=== PATIENT | male | born 1945 | race Caucasian/White ===

== ENCOUNTER 2020-08-25 21:47 | Inpatient (IN) | payer MEDICARE, MEDICAID ==
[~2020-08-25] VITALS: Ht 180.3 cm; Wt 65.6 kg
[2020-08-25] MEDS ORDERED: SODIUM CHLORIDE FLUSH 10ML SYR IVF ONE (22:00)
--- NOTE | 2020-08-25 22:05 | NUR ---
PT RECIEVED FROM [facility] FOR MORPHINE OVERDOSE AND SUBSEQUENT AFIB WITH RVR. 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 PT WAS ALSO GIVEN LABATELOL, DILT PUSHES AND PT WAS RECIEVED HERE ON A DILT DRIP. PER ER CASEY, HOLD DILT DRIP AND NOTIFIY HIM IF HR EXCEEDS 100 BPM. PT ATTACHED TO ALL MONITORS AND APPEARS NSR. PT [id number].
--- NOTE | 2020-08-25 22:08 | NUR ---
REPORT OF PT FROM DIXIE YOUNGBLOOD AND ASSUMING CARE OF PT AT THIS TIME.
--- NOTE | 2020-08-25 22:13 | NUR ---
CHEST X RAY AND HEAD CT SCAN AT TRANSFERING FACILITY BOTH NEGATIVE FOR ACUTE ABNORMALITIES.
[2020-08-25] MEDS ORDERED: ALBUTEROL (22:27)
[2020-08-25] MEDS ORDERED: BUPR100T11 PO (22:27)
[2020-08-25] MEDS ORDERED: HYDR50TA99 PO (22:27)
[2020-08-25] MEDS ORDERED: LOSA100T14 PO (22:27)
[2020-08-25] MEDS ORDERED: MORPHINE PO (22:27)
[2020-08-25] MEDS ORDERED: TEMA30CA PO (22:27)
[2020-08-25] MEDS ORDERED: AMLO-150 PO (22:27)
[2020-08-25] MEDS ORDERED: GABA600T7 PO (22:27)
[2020-08-25] MEDS ORDERED: HYDR-3246 PO (22:27)
[2020-08-25] MEDS ORDERED: METO-95 PO (22:27)
[2020-08-25 22:43] LABS: BASOPHILS % (AUTO) 0 % (0-1); EOSINOPHILS % (AUTO) 0 % (1-7); LYMPHOCYTES % (AUTO) 7 % (22-44); MEAN CORPUSCULAR HEMOGLOBIN 30.7 pg (27.5-34.5); MEAN CORPUSCULAR HGB CONC 33.3 g/dL (33.2-36.2); MEAN PLATELET VOLUME 8.8 fL (7.4-10.4); MONOCYTES % (AUTO) 7 % (2-9); NEUTROPHILS % (AUTO) 86 % (42-75); PLATELET COUNT 311 x10^3/uL (130-400); RED BLOOD COUNT 4.65 x10^6/uL (4.38-5.82); RED CELL DISTRIBUTION WIDTH 14.7 % (9.4-14.8)
[2020-08-25 22:44] LABS: MD NO
[2020-08-25 22:50] LABS: ALBUMIN 2.9 g/dL (3.4-5.0); CALCIUM 9.1 mg/dL (8.5-10.1); CHLORIDE 106 mmol/L (98-107)
[2020-08-25 23:00] LABS: ANION GAP 10 mmol/L (5-15)
[2020-08-25 23:02] LABS: ALANINE AMINOTRANSFERASE 61 U/L (12-78); ALKALINE PHOSPHATASE 101 U/L (45-117); BILIRUBIN,TOTAL 0.7 mg/dL (0.2-1.0); CREATININE 0.92 mg/dL (0.7-1.3); T4 (THYROXINE) 7.7 mcg/dL (4.5-12.1); TOTAL PROTEIN 7.1 g/dL (6.4-8.2); TROPONIN I 0.021 ng/mL (0.000-0.045)
[2020-08-25 23:07] LABS: INTERNATIONAL NORMALIZED RATIO 1.01 (0.93-1.1); PROTHROMBIN TIME 10.7 Seconds (9.6-11.5)
[2020-08-25] MEDS ORDERED: FUROSEMIDE 40 MG/4 ML ONE (23:08)
--- NOTE | 2020-08-25 23:16 | NUR ---
pt resting in [facility] at this time. dr walker at for pt history and assessment. pt medicated per mar and vss and updated.
[2020-08-25] MEDS ORDERED: ONDANSETRON 2MG/ML, 2ML IVPush PRN (23:30)
[2020-08-25] MEDS ORDERED: METHOCARBAMOL 500 MG TABLET PO PRN (23:30)
[2020-08-25] MEDS ORDERED: GUAIFENESIN/DM 200-20MG, 10ML UDC PO PRN (23:30)
[2020-08-25] MEDS ORDERED: FUROSEMIDE 40 MG/4 ML IV ONE (23:30)
[2020-08-25] MEDS ORDERED: ENALAPRILAT 1.25 MG/ML, 2ML IVPush PRN (23:30)
[2020-08-25] MEDS ORDERED: DOCUSATE 100 MG CAPSULE PO PRN (23:30)
[2020-08-25 23:45] LABS: FREE T4 (FREE THYROXINE) 1.4 ng/dL (0.76-1.46)
--- NOTE | 2020-08-26 00:26 | NUR ---
REPORT OF PT TO DIXIE SYKES. ALL QUESTIONS ANSWERED. PT VERBALIZES UNDERSTANDING OF ROOM ASSIGNMENT. TECH PAGED FOR TRANSPORT OF PT FROM ED TO FLOOR AT THIS TIME.
[2020-08-26 00:53] VITALS: BP 125/77
[2020-08-26 00:54] VITALS: BP 125/77
[2020-08-26] MEDS: ACETAMINOPHEN 325 MG TABLET PO PRN ×3 (04:41→20:05)
[2020-08-26 05:22] LABS: ANION GAP 2 mmol/L (5-15); CHLORIDE 106 mmol/L (98-107)
[2020-08-26 05:27] LABS: CREATININE 0.82 mg/dL (0.7-1.3); TROPONIN I 0.021 ng/mL (0.000-0.045)
[2020-08-26 07:16] VITALS: BP 136/81
[2020-08-26] MEDS ORDERED: FUROSEMIDE 40 MG/4 ML IV SCH (07:30)
[2020-08-26 07:38] LABS: BASOPHILS % (AUTO) 1 % (0-1); EOSINOPHILS % (AUTO) 1 % (1-7); LYMPHOCYTES % (AUTO) 11 % (22-44); MEAN CORPUSCULAR HEMOGLOBIN 31.2 pg (27.5-34.5); MEAN CORPUSCULAR HGB CONC 33.7 g/dL (33.2-36.2); MEAN PLATELET VOLUME 8.5 fL (7.4-10.4); MONOCYTES % (AUTO) 8 % (2-9); NEUTROPHILS % (AUTO) 80 % (42-75); PLATELET COUNT 326 x10^3/uL (130-400); RED BLOOD COUNT 4.47 x10^6/uL (4.38-5.82); RED CELL DISTRIBUTION WIDTH 14.9 % (9.4-14.8)
[2020-08-26 07:40] LABS: MD NO
[2020-08-26] MEDS ORDERED: FAMOTIDINE 40 MG TABLET ONE ×2 (10:10→20:41)
[2020-08-26] MEDS: GABAPENTIN 300 MG CAPSULE PO SCH ×2 (10:12→20:45)
[2020-08-26] MEDS: AMLODIPINE 5 MG TABLET PO SCH (10:12)
[2020-08-26] MEDS: METOPROLOL SUCCINATE 100 MG TAB.ER.24H PO SCH (10:12)
[2020-08-26] MEDS: ENOXAPARIN 40 MG/0.4 ML SQ SCH (10:12)
[2020-08-26] MEDS: LOSARTAN 100 MG TAB PO SCH (10:12)
[2020-08-26] MEDS: BUPROPION 100 MG TABLET PO SCH (10:12)
[2020-08-26] MEDS: FAMOTIDINE 20 MG TABLET PO SCH ×2 (10:13→20:45)
[2020-08-26 10:29] LABS: TROPONIN I < 0.015 ng/mL (0.000-0.045)
[2020-08-26 15:03] VITALS: BP 118/76
[2020-08-26 19:49] VITALS: BP 105/68
[2020-08-26] MEDS ORDERED: POTASSIUM CHLORIDE 20 MEQ TAB.ER.PRT PO ONE (20:00)
[2020-08-26] MEDS ORDERED: hydrOXyzine 50MG TABLET PO SCH (21:00)
[2020-08-27 00:44] VITALS: BP 149/77
[2020-08-27 06:47] VITALS: BP 148/73
[2020-08-27] MEDS: ENOXAPARIN 40 MG/0.4 ML SQ SCH (07:30)
[2020-08-27] MEDS: FAMOTIDINE 20 MG TABLET PO SCH (09:00)
[2020-08-27] MEDS ORDERED: FUROSEMIDE 40 MG TABLET PO SCH (09:00)
[2020-08-27] MEDS ORDERED: FAMOTIDINE 40 MG TABLET ONE (09:34)
[2020-08-27] MEDS: LOSARTAN 100 MG TAB PO SCH (09:35)
[2020-08-27] MEDS: BUPROPION 100 MG TABLET PO SCH (09:36)
[2020-08-27] MEDS: GABAPENTIN 300 MG CAPSULE PO SCH (09:36)
[2020-08-27] MEDS: METOPROLOL SUCCINATE 100 MG TAB.ER.24H PO SCH (09:36)
[2020-08-27] MEDS: AMLODIPINE 5 MG TABLET PO SCH (09:36)
== END 2020-08-27 12:02 | disposition home or self-care (01) | DRG 917 ==
LOC: ED 22:27 → EDIP 23:02 → 5SO 08-26 00:53 → DCLOUNGE 08-27 11:48
PROVIDERS: ADMIT Internal Medicine; ATTEND Internal Medicine Infectious Disease
DX: T40.2X1A Poisoning by other opioids, accidental (unintentional), initial encounter (principal); I50.21 Acute systolic (congestive) heart failure; I48.92 Unspecified atrial flutter; I11.0 Hypertensive heart disease with heart failure; I50.9 Heart failure, unspecified; D72.829 Elevated white blood cell count, unspecified; F41.1 Generalized anxiety disorder; G89.29 Other chronic pain; I25.10 Atherosclerotic heart disease of native coronary artery without angina pectoris; I48.0 Paroxysmal atrial fibrillation; G43.909 Migraine, unspecified, not intractable, without status migrainosus; M54.9 Dorsalgia, unspecified; M54.2 Cervicalgia; Y92.89 Other specified places as the place of occurrence of the external cause; Z95.1 Presence of aortocoronary bypass graft; Z87.891 Personal history of nicotine dependence; Z72.89 Other problems related to lifestyle; Z90.49 Acquired absence of other specified parts of digestive tract; Z88.5 Allergy status to narcotic agent
CPT/HCPCS: 36415; 71045; 80048; 80053; 83735; 83880; 84100; 84436; 84439; 84443; 84481; 84484; 85025; 85610; 85730; 93005; 93306; G0378; J1650; J1940